=== PATIENT | male | born 1985 | race Caucasian/White ===

== ENCOUNTER 2017-09-19 23:37 | Observation (INO) ==
[2017-09-20] MEDS ORDERED: Naloxone 0.4 MG/ML INJ IVP PRN (04:15)
[2017-09-20 04:45] LABS: Hematocrit 45.7 % (37.5-50.1); Mean Corpuscular HGB Conc 32.8 g/dL (31.6-35.5); Mean Corpuscular Hemoglobin 26.4 pg (28.0-33.3); Mean Corpuscular Volume 80.5 fL (83.0-100.0); Mean Platelet Volume 10.6 fL (9.4-12.4); Platelet Count 223 K/mcL (140-400); Red Blood Count 5.68 M/mcL (4.19-5.50); Red Cell Distribution Width 13.8 % (11.5-14.5)
[2017-09-20 05:03] LABS: BUN/Creatinine Ratio 14 (6-26); Blood Urea Nitrogen 10 mg/dL (6-20); Calcium 9.1 mg/dL (8.6-10.3); Carbon Dioxide 25 mEq/L (23-29); Chloride 103 mEq/L (98-107); Glucose 127 mg/dL (70-105); Osmolality,Calculated 275 (280-300); Potassium 3.7 mEq/L (3.5-5.1); Sodium 132 mEq/L (136-145); eGFR For Non-African Americans > 60 (> 60)
[2017-09-20] MEDS ORDERED: ALPRAZolam 1 MG TABLET PO PRN (07:57)
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
[2017-09-20] MEDS ORDERED: Loratadine 10 MG TABLET PO SCH (09:00)
[2017-09-20] MEDS ORDERED: cefTRIAXone 1,000 MG in Water for inj. (sterile) 20 ML 10 ML IVP SCH (09:00)
[2017-09-20] MEDS ORDERED: BACLOFEN IT SCH (09:00)
[2017-09-20] MEDS ORDERED: Aspirin Enteric Coated 81 MG Tablet PO SCH (09:00)
[2017-09-20] MEDS ORDERED: FLUoxetine 20 MG CAPSULE PO SCH (09:00)
[2017-09-20 16:02] VITALS: BP 146/95
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
[2017-09-20] MEDS ORDERED: Doxycycline 100 MG CAPSULE PO ONE (16:35)
--- NOTE | 2017-09-20 16:38 | Physician Discharge Referral ---
Home Health/Hosp Referral Info Transfer to: Home Health Provider in Charge Post Discharge: PCP - Diagnosis (1) Cellulitis Priority: Primary Status: Acute (2) Anxiety Priority: Secondary Status: Chronic (3) History of traumatic brain injury Priority: Secondary Status: Chronic (4) Dehydration Priority: Secondary Status: Resolved - Respiratory Orders None Smoking Cessation: Smoking cessation has been advised. For more information, call the [place] Tobacco Quit Line at 3-860-LRZS-NOW. - Dressing/Wound Care Site: Blister L leg- open to air - Diet/Nutrition Diet/Nutrition Orders: Regular - Activity Activity Orders: Up ad bernarda - Services Needed Following services are medically necessary services: Nursing, Home Health Aide, Physical Therapy, Occupational Therapy - Transfer Medications Prescriptions: Doxycycline Hyclate 100 mg PO BID #14 tablet Home Medications: ALPRAZolam [Xanax 1 MG Tablet] 1 mg PO TID PRN 09/19/17 [History] Aspirin [Lo-Dose Aspirin EC] 81 mg PO DAILY 09/19/17 [History] Cetirizine HCl [Zyrtec] 10 mg PO DAILY 09/19/17 [History] FLUoxetine HCl [Prozac] 20 mg PO DAILY 09/19/17 [History] Baclofen [Lioresal Intrathecal Pump] 464 mcg IT DAILY 09/20/17 [History] Doxycycline Hyclate 100 mg PO BID #14 tablet 09/20/17 [Rx] Allergies/Adverse Reactions: 3 Allergy/AdvReac Type Severity Reaction Status Date / Time Amoxicillin [From Augmentin] Allergy Swelling Verified 09/19/17 20:28 of Lip/Tongue/Throat Buspirone [From BuSpar] Allergy Swelling Verified 09/19/17 20:28 of Lip/Tongue/Throat clavulanic acid Allergy Swelling Verified 09/19/17 20:28 [From Augmentin] of Lip/Tongue/Throat hydroxyzine [From Vistaril] Allergy Hives Verified 09/19/17 20:28 lurasidone [From Latuda] Allergy Agitated Verified 09/19/17 20:29 sertraline [From Zoloft] Allergy Agitated Verified 09/19/17 20:29 Certification: Further, I certify that my clinical findings support that this patient is homebound (i.e. absences from home require considerable and taxing effort and are for medical reasons or christian services or infrequently or short duration when for other reasons) because: Homebound Reason: Patient requires assistance of a person or device to safely leave home, Leaving home requires considerable and taxing effort due to condition, Altered mental status requiring supervision when leaving home Attestation: My signature below is to certify that this patient is under my care and that I, or nurse practitioner, or a physician's elementary assistant teacher working with me, has a face-to -face encounter with this patient.
[2017-09-20] MEDS ORDERED: Aminoglycoside Consult 1 EACH MC ONE (17:59)
== END 2017-09-20 18:00 | disposition home health service (06) ==
LOC: 3ANU → SUATTDRO 09-20 01:27
PROVIDERS: ADMIT Internal Medicine; ATTEND Internal Medicine